=== PATIENT | male | born 1940 | race African-American/Black ===

== ENCOUNTER 2016-07-22 10:17 | Inpatient (IN) | payer OTHER ==
--- NOTE | ~2016-07-22 | CR72 ---
[facility] A Service of [facility] & [facility] RADIOLOGY TEXT RESULTS PATIENT: RAFI ROBINS LOCATION: [facility] [id number] : 39 UNIT #: [id number] AGE: [address]: Satish Cutler MD SEX: M ORDER DR: [id number] [facility] [address] [place], [place] [address] [id number] MR#: [id number] Acc #: [id number] NAME: RAFI ROBINS : 1940 SEX: M STUDY DATE/TIME: 07/22/2016 11:24 UNIT: QUINCY ROOM: STUDY DESCRIPTION: CR Chest Single View Portable Attending Physician: Jamil Gonzalez M.D. Ordering Physician: Jamil Gonzalez M.D. Primary Care Physician: Wicho Mc M.D. MEDICAL IMAGING REPORT This report is preliminary unless electronic signature is present EXAM Chest portable 07/22/2016 1124 hours HISTORY 76-year-old man with 4-day history of chest pain, history of diabetes, CABG and coronary stents. Hypertension. COMPARISON None. FINDINGS Portable upright chest demonstrates median sternotomy and CABG change. There is [id number] cardiomegaly and a tortuous atherosclerotic aorta. The lungs demonstrate calcified granulomata. There is no edema, pneumonia or effusion. IMPRESSION CABG change with mild to moderate cardiomegaly and tortuous aorta. The lungs are clear of acute densities. There is no pleural effusion or pneumothorax. Dictated by... Jacquelyn Lucas M.D. THIS IS AN ELECTRONICALLY VERIFIED REPORT Jacquelyn Lucas M.D. at 07/22/2016 2:34 PM CORTEZ/jl TD: 07/22/2016 13:51 JOB #: [id number] MEDICAL IMAGING REPORT Page 1 of 1 COPY
--- NOTE | ~2016-07-22 | HP ---
Unit #: [id number] #: [id number] Patient: RAFI ROBINS [id number] [address] [place], [place] [address] [id number] I MR#: [id number] NAME: RAFI ROBINS ROOM: [address]65 Age: 76 Sex: M Admission Date: 07/22/2016 : 1940 Attending Physician: Satish Cutler M.D. Primary Care Physician: Wicho Mc M.D. HISTORY AND PHYSICAL HISTORY OF PRESENT ILLNESS This is a 76-year-old -[place] male who is known to Dr. Cutler that has a history of myocardial infarction in 1994 where he underwent coronary artery bypass graft x4. In 2009 he had angioplasty with stent placement to the saphenous vein graft to the obtuse marginal. He is known to have hypertension, hyperlipidemia, diabetes and a remote history of nicotine abuse as risk factors for ischemic heart disease. The patient presents to the emergency room with a complaint of exertional substernal chest pressure. His chest pain has been ongoing for the past three days. There is no radiation to his neck, arm or jaw. He reports shortness of breath and occasional palpitation and dizziness that accompanies chest pain. He walks on a regular basis but for the past three days after walking 10 minutes he begins to have chest pressure. This morning he was cleaning his house and chest pain continued. He has been awakened at night with similar symptoms. He came to the emergency room for evaluation where his EKG was showing him to have ST depression in the anterolateral leads with evidence of an old inferior infarct. His troponin initially elevated to 0.32. He is currently chest pain free. PAST MEDICAL HISTORY 1. Myocardial infarction, status post coronary artery bypass graft x4 in 1994 at [facility]. No details available. 2. PCI and stent x2 to saphenous vein graft to the first obtuse marginal branch per Dr. Michelle at [facility] in 2009. 3. Hypertension. 4. Hyperlipidemia. 5. Diabetes mellitus type 2. 6. Peripheral vascular disease. 7. Former smoker. PAST SURGICAL HISTORY Coronary artery bypass graft. SOCIAL HISTORY The patient is and retired. He states he is reasonably active, quit smoking in 1983. He denies illicit drug and alcohol use. FAMILY HISTORY Positive for myocardial infarction in his father, who at age 54. ALLERGIES No known drug allergies. Unit #: [id number] #: [id number] Patient: RAFI ROBINS HOME MEDICATIONS 1. Doxazosin 2 mg daily. 2. Protonix 40 mg daily. 3. Nifedipine 90 mg daily. 4. Metformin 500 mg daily. 5. Carvedilol 12.5 mg b.i.d. 6. Hydrochlorothiazide 25 mg daily. 7. Enalapril 20 mg daily. 8. Aspirin 81 mg daily. 9. Atorvastatin 40 mg daily. 10. Imdur 60 mg daily. REVIEW OF SYSTEMS CONSTITUTIONAL: Negative for fever or chills. Has no fatigue or weakness. HEENT: No headache, hearing or vision changes. No difficulty with swallowing. Has occasional dizziness. CARDIOVASCULAR: Has chest pain described in the HPI. Has occasional palpitations. No paroxysmal nocturnal dyspnea or orthopnea. Denies syncope or near syncope. RESPIRATORY: Reports dyspnea that accompanies chest pain on exertion. No cough or hemoptysis. GASTROINTESTINAL: No abdominal pain, nausea or vomiting. No constipation or melena. EXTREMITIES: Negative for lower extremity edema. PHYSICAL EXAMINATION VITAL SIGNS: Blood pressure 165/87, heart rate 69, temperature 97.9. GENERAL: This is a 76-year-old, thin-framed, -[place] male who is in no acute respiratory distress. NEUROLOGICAL: He is awake, alert and oriented. There are no focal weaknesses. NECK: Trachea is midline. No thyromegaly or lymphadenopathy. No jugular venous distention. HEART: S1, S2. Heart sounds are normal. No murmurs. No rubs or clicks. Regular rate and rhythm. RESPIRATORY: Lungs clear, without rales, rhonchi or wheezes. ABDOMEN: Soft, nontender, with bowel sounds present. EXTREMITIES: Without leg edema SKIN: Warm and dry. DIAGNOSTIC STUDIES LABORATORY: Hemoglobin 14.3, hematocrit 43.6, platelet count 161, white count 6.1, sodium 137, potassium 2.9, BUN 16, creatinine 1.1, glucose 175, troponin 0.32 and CK-MB 3.7. IMAGING: Chest x-ray shows mild to moderate cardiomegaly but no active disease. CARDIOVASCULAR: EKG shows sinus rhythm with a first-degree AV block with an old inferior infarct with Q waves noted in III and aVF. There is ST depression in anterolateral leads. Questionable LVH versus ischemia. IMPRESSION 1. Acute coronary syndrome, rule out myocardial infarction. 2. Hypokalemia. 3. Elevated troponin. Peak of 0.32. Unit #: [id number] #: [id number] Patient: RAFI ROBINS 4. History of coronary artery bypass graft in 1994. 5. Percutaneous coronary intervention with stents to the first obtuse marginal branch, saphenous vein graft. 6. Hypertension. 7. Hyperlipidemia. 8. Diabetes mellitus type 2. PLAN 1. The patient's symptom are concerning for worsening coronary artery disease. His troponin is elevated but has not yet ruled in for an acute myocardial infarction; will continue to trend cardiac enzymes and troponin. 2. Repeat EKG. 3. I spoke with the patient and about cardiac catheterization to reevaluate his coronary anatomy. Risks and benefits were explained and they are agreeable; will schedule for tomorrow afternoon. 4. Start on Lovenox in addition to aspirin and Plavix. Continue oral nitrates. 5. Increase high-intensity statin with Lipitor 80 mg daily. 6. Supplement potassium. Dictated by Tyler HandPAstridRLulu for Bharat Nunez/mckinley TD: 07/22/2016 16:34 JOB #: [id number] HISTORY AND PHYSICAL Page 1 of 1 X Valentin Roberts APRN HISTORY AND PHYSICAL
--- NOTE | ~2016-07-22 | EKG ---
PATIENT: RAFI ROBINS UNIT #: [id number] Ventricular Rate: 61 BPM Atrial Rate: 61 BPM P-R Interval: 190 ms QRS Duration: 84 ms Q-T Interval: 388 ms QTC Calculation(Bezet): 390 ms P Manila: 73 degrees Calculated R [place]: -8 degrees Calculated T [place]: 136 degrees Diagnosis Line: Normal sinus rhythm Diagnosis Line: Possible Left atrial enlargement Diagnosis Line: Left ventricular hypertrophy with repolarization Diagnosis Line: abnormality Diagnosis Line: Inferior infarct (cited on or before 22-JUL-2016) Diagnosis Line: Abnormal ECG Diagnosis Line: When compared with ECG of 22-JUL-2016 12:09, Diagnosis Line: Non-specific change in ST segment in Inferior Diagnosis Line: leads Diagnosis Line: Nonspecific T wave abnormality has replaced Diagnosis Line: inverted T waves in Inferior leads Diagnosis Line: Confirmed by SANDI ROCKWELL MD ([id number]) on Diagnosis Line: 07/25/2016 3:43:15 PM INTERPRETING MD: ADAM
--- NOTE | ~2016-07-22 | EKG ---
PATIENT: RAFI ROIBNS UNIT #: [id number] Ventricular Rate: 64 BPM Atrial Rate: 64 BPM P-R Interval: 218 ms QRS Duration: 92 ms Q-T Interval: 406 ms QTC Calculation(Bezet): 418 ms P Brinson: 56 degrees Calculated R Brinson: -11 degrees Calculated T Brinson: 167 degrees Diagnosis Line: Sinus rhythm with 1st degree A-V block Diagnosis Line: Left ventricular hypertrophy with repolarization Diagnosis Line: abnormality Diagnosis Line: Inferior infarct (cited on or before 22-JUL-2016) Diagnosis Line: Abnormal ECG Diagnosis Line: When compared with ECG of 22-JUL-2016 10:25, Diagnosis Line: (unconfirmed) Diagnosis Line: Premature atrial complexes are no longer Present Diagnosis Line: Serial changes of Inferior infarct Present Diagnosis Line: Confirmed by BRENNAN CUETO MD ([id number]) on 07/23/2016 Diagnosis Line: 7:32:31 AM INTERPRETING MD: ROM BRANNON
--- NOTE | ~2016-07-22 | EKG ---
PATIENT: RAFI ROBINS UNIT #: [id number] Ventricular Rate: 52 BPM Atrial Rate: 52 BPM P-R Interval: 192 ms QRS Duration: 84 ms Q-T Interval: 418 ms QTC Calculation(Bezet): 388 ms P Burnet: 52 degrees Calculated R Burnet: 0 degrees Calculated T Burnet: 164 degrees Diagnosis Line: Sinus bradycardia Diagnosis Line: Moderate voltage criteria for LVH, may be normal Diagnosis Line: variant Diagnosis Line: Inferior infarct (cited on or before 22-JUL-2016) Diagnosis Line: ST and T wave abnormality, consider lateral ischemia Diagnosis Line: Abnormal ECG Diagnosis Line: When compared with ECG of 23-JUL-2016 16:15, Diagnosis Line: (unconfirmed) Diagnosis Line: Nonspecific T wave abnormality has replaced Diagnosis Line: inverted T waves in Anterior leads Diagnosis Line: Confirmed by SANDI ROCKWELL MD ([id number]) on Diagnosis Line: 07/25/2016 3:57:26 PM INTERPRETING MD: ADAM
--- NOTE | ~2016-07-22 | EKG ---
PATIENT: RAFI ROBINS UNIT #: [id number] Ventricular Rate: 78 BPM Atrial Rate: 78 BPM P-R Interval: 202 ms QRS Duration: 96 ms Q-T Interval: 394 ms QTC Calculation(Bezet): 449 ms P [place]: 71 degrees Calculated R [place]: -8 degrees Calculated T [place]: 153 degrees Diagnosis Line: Sinus rhythm with Premature atrial complexes Diagnosis Line: Left ventricular hypertrophy with repolarization Diagnosis Line: abnormality Diagnosis Line: Inferior infarct , age undetermined Diagnosis Line: Abnormal ECG Diagnosis Line: No previous ECGs available Diagnosis Line: Confirmed by BRENNAN CUETO MD ([id number]) on 07/23/2016 Diagnosis Line: 7:29:30 AM INTERPRETING MD: ROM BRANNON
--- NOTE | ~2016-07-22 | DS ---
Unit #: [id number] #: [id number] Patient: RAFI ROBINS [id number] [facility] [address] [place], [place] [address] [id number] I MR#: [id number] NAME: RAFI ROBINS ROOM: 573 Age: 76 Sex: M Admission Date: 07/22/2016 : 1940 Discharge Date: 07/25/2016 Attending Physician: Satish Cutler M.D. Primary Care Physician: Wicho Mc M.D. DISCHARGE SUMMARY DISCHARGE DIAGNOSES 1. Acute non ST elevation myocardial infarction. 2. Cardiac catheterization, July 23, 2016, per Dr. Cutler at [facility] that revealed the following results. A. Left main: Normal. B. Left anterior descending with chronic eccentric occlusion after the origin of the second diagonal branch. First diagonal branch 90% stenosis at its origin. Distal vessel small in caliber but may be bypassable. Left internal mammary artery to left anterior descending patent. C. Circumflex artery with 90% stenosis of the second marginal branch. First marginal branch with 99% stenosis at its origin. Distal to the second marginal branch, the circumflex artery is occluded. The posterior marginal branch is normal, both small in caliber. Vein graft to the second marginal branch occluded at its aortic anastomosis. The vein graft to the third marginal branch is occluded at its aortic anastomosis. D. Right coronary artery occluded at the junction of the proximal third and distal two thirds. Vein graft to the distal right coronary artery is occluded at the aortic anastomosis. Distal right coronary artery is small but normal. Posterior descending artery is small in caliber. E. Ejection fraction of 50%. F. There is moderate hypokinesis of the inferior wall. 3. Status post unsuccessful attempt to percutaneous coronary intervention left circumflex obtuse marginal branch secondary to inability to cross the lesion with a wire. 4. Hypertension. 5. Hyperlipidemia. 6. Diabetes mellitus type 2. 7. Hypokalemia, resolved. 8. History of coronary artery bypass graft x4 in 1994 after myocardial infarction. 9. Percutaneous coronary intervention and stent x2 to obtuse marginal branch, saphenous vein graft. 10. Former smoker. DISCHARGE MEDICATIONS 1. Hydrochlorothiazide 25 mg daily. 2. Lipitor 80 mg nightly. 3. Catapres 0.1 mg daily. 4. Cardura 2 mg daily. 5. Aspirin 81 mg daily. 6. Metformin 500 mg daily. Unit #: [id number] #: [id number] Patient: RAFI ROBINS 7. Carvedilol 25 mg b.i.d. 8. Vasotec 20 mg daily. 9. Nifedipine 90 mg daily. 10. Ranexa 500 mg b.i.d. 11. Plavix 75 mg daily. 12. Protonix 40 mg daily. 13. Imdur 60 mg daily. 14. Nitroglycerin 0.4 mg q.5 x3 p.r.n. chest pain. HOSPITAL COURSE This is a 76-year-old -[place] male who has had previous coronary artery bypass graft x4 in 1994 after myocardial infarction. He had angioplasty with stent placement to the saphenous vein graft and to the obtuse marginal branch in [address] Michelle. The patient presents with exertional chest pressure associated with dyspnea, palpitations, and dizziness. His electrocardiogram showed changes with ST depression in the anterolateral leads. His initial troponin was elevated at 0.32, but eventually peaked at 1.09 ruling him in for an acute myocardial infarction. He was treated with nitrates and aspirin in the emergency room. He was hyperkalemic with potassium level of 2.9 which was supplemented. He was started on high-intensity Lipitor 80 mg daily and anticoagulated with Lovenox and Integrilin drip. It was suggested that the patient have his coronary anatomy re-evaluated given his symptoms and previous cardiac history. Risks and benefits were explained and he was agreeable. The following day, the patient was taken to the cardiac catheterization lab where he was found to have multivessel disease. The PETERSON to the LAD was patent; however, his vein grafts to the second marginal branch of the circumflex and third marginal branch of the circumflex as well as the right coronary artery were all occluded. The wilton proximal circumflex artery had 99% stenosis as well as the second marginal branch with 99% stenosis. LAD was 100% stenosed as well as the right coronary artery. There was an attempt angioplasty to the second marginal branch of the circumflex artery; however, after using several balloons and wires, there was inability to cross the lesion. The PCI was aborted. It was suggested that the patient consider redo bypass surgery but review of cineangiograms by Dr. Gray, the patient had very small targets and was not ideal for redo coronary artery bypass graft. It was discussed with patient and daughter that we will try medical treatment but if angina was to continue, may attempt laser assist at PCI on the circumflex marginal in three to six weeks. Integrilin was discontinued and the patient was loaded with Plavix and started on a daily regimen. He was also started on Ranexa. Cardiac rehab was asked to see the patient prior to discharge for enrollment in their program. He was able to walk down the hallway without any additional chest pain or shortness of breath. He had no electrocardiogram changes. His heart rate and blood pressure were stable. He is stable for discharge today. PHYSICAL EXAMINATION VITAL SIGNS: Blood pressure 112/56, heart rate 54, temperature 97.5. CHEST: Clear to auscultation. HEART: S1, S2 with regular rate and rhythm. No murmurs, rubs, or clicks. ABDOMEN: Soft, nontender with bowel sounds present. EXTREMITIES: Without leg edema. Right groin without hematoma or bruising. DIAGNOSTIC STUDIES LABORATORY: Glucose 97, BUN 21, creatinine 1.3, sodium 140, potassium 3.8. Cholesterol 115, triglycerides 73, LDL 65, HDL 35. White count 8.4, Unit #: [id number] #: [id number] Patient: RAFI ROBINS hemoglobin 12.6, hematocrit 39.6, platelet count 167,000. CARDIOVASCULAR: Rhythm strip shows a normal sinus rhythm. EKG shows sinus bradycardia, rate of 52 beats per minute. There is T-wave inversion in the lateral leads V4 through V6, one in aVL. Left ventricular hypertrophy. DISCHARGE INSTRUCTIONS 1. The patient will be discharged home today. 2. Followup with his primary care physician in two to three weeks, with Dr. Cutler on September 11 at 2:30 p.m. 3. No heavy lifting for 48 hours. 4. No driving for 24 hours. 5. Continue on dual-antiplatelet therapy with aspirin and Plavix. 6. The patient has been started on Ranexa which is affordable for him. He has been given a one-month supply samples from the office. 7. Continue on beta harinder, statin, and nitrates. He has been instructed the use of sublingual nitroglycerin as needed for chest pain. Dictated by... Valentin E. Erickson Roberts M.D. AEP/ch TD: 07/28/2016 15:03 JOB #: [id number] CC: Wicho Mc M.D. DISCHARGE SUMMARY Page 1 of 1 X Valentin Roberts APRN X DISCHARGE SUMMARY
[2016-07-22 11:51] LABS: BASOPHIL% 0.5 % (0-2.5); EOSINOPHIL% 0.7 % (0.0-7.0); HEMATOCRIT 43.6 % (38.0-50.0); HEMOGLOBIN 14.3 gm/dL (13.0-16.0); LYMPHOCYTE# 1.8 X10e3 (1.0-3.5); LYMPHOCYTE% 29.9 % (17.0-45.0); MEAN CELL VOLUME 84.4 FL (83-96); MEAN CORPUSCULAR HEMOGLOBIN 27.6 PG (28-34); MEAN CORPUSCULAR HGB CONC 32.8 g/dL (30-36); MEAN PLATELET VOLUME 9.1 FL (6.5-11.5); MONOCYTE# 0.5 X10e3 (0-1.0); MONOCYTE% 8.8 % (3.0-12.0); NEUTROPHIL# 3.7 X10e3 (1.5-7.1); NEUTROPHIL% 60.1 % (40-75); PLATELET COUNT 161 X10e3 (140-420); RED BLOOD COUNT 5.17 X10e (3.90-5.60); RED CELL DISTRIBUTION WIDTH 14.2 % (11.0-15.5); WHITE BLOOD COUNT 6.1 X10e3 (4.0-10.5)
[2016-07-22 11:54] LABS: DIFF IND NO
[2016-07-22 12:01] LABS: POC - CKMB 3.7 ng/mL (0.0-7.9); POC - TROPONIN 0.32 ng/mL (<=0.05)
[2016-07-22 12:08] LABS: PARTIAL THROMBOPLASTIN TIME 26.5 SECONDS (23.5-31.3); PROTHROMBIN TIME (PATIENT) 10.9 SECONDS (9.6-11.5)
[2016-07-22 12:22] LABS: ALBUMIN SERUM 3.9 g/dL (3.5-5.0); ALKALINE PHOSPHATASE 83 U/L (32-92); ALT (SGPT) 22 U/L (10-40); AST (SGOT) 33 U/L (10-42); BILIRUBIN,TOTAL 0.7 mg/dL (0.2-2.0); BLOOD UREA NITROGEN 16 mg/dL (9-23); BUN/CREATININE RATIO 14.54; CALCIUM SERUM 8.7 mg/dL (8.4-10.2); CARBON DIOXIDE 28 mmol/L (22-31); CHLORIDE 100 mmol/L (100-111); CREATININE SERUM 1.1 mg/dL (0.6-1.4); GLOM FILT RATE Estimated 74.7 mL/min (>60); GLUCOSE FASTING 175 mg/dL (70-110); PROTEIN TOTAL SERUM 7.5 g/dL (6.0-8.3); SODIUM 137 mmol/L (135-145)
[2016-07-22 12:23] LABS: BILIRUBIN, DIRECT <0.1 mg/dL (0.0-0.2); BILIRUBIN,INDIRECT 0.6 mg/dL (0.0-0.9); POTASSIUM 2.9 mmol/L (3.5-5.1)
[2016-07-22 13:42] LABS: POC - CKMB 8.6 ng/mL (0.0-7.9); POC - TROPONIN 0.59 ng/mL (<=0.05)
[2016-07-22] MEDS ORDERED: NIFEDIPINE ER90 M3 PO (14:27)
[2016-07-22] MEDS ORDERED: PANTOPRAZOLE SO40 MG PO (14:27)
[2016-07-22] MEDS ORDERED: CARDURA2 MG PO (14:27)
[2016-07-22] MEDS ORDERED: METFORMIN HCL500 M3 PO (14:28)
[2016-07-22] MEDS ORDERED: CATAPRES0.1 MG PO (14:28)
[2016-07-22] MEDS ORDERED: COREG12.5 MG PO (14:28)
[2016-07-22] MEDS ORDERED: HYDROCHLOROTHIA25 MG PO (14:29)
[2016-07-22] MEDS ORDERED: ENALAPRIL MALEA20 MG PO (14:29)
[2016-07-22] MEDS ORDERED: ASPIRIN81 MG PO (14:29)
[2016-07-22] MEDS ORDERED: LIPITOR40 MG PO (14:29)
[2016-07-22] MEDS ORDERED: IMDUR-ER60 M1 PO (14:30)
[2016-07-22 15:25] LABS: CHOLESTEROL 152 mg/dL (0-200); HDL CHOLESTEROL 44 mg/dL (29-75); LDL CHOLESTEROL 82 mg/dL (-130); LDL/HDL RATIO 2 RATIO (0-4); TRIGLYCERIDES 128 mg/dL (10-160)
[2016-07-22 20:47] LABS: %MB 4.2 % (0.0-4.0); MB 23.1 ng/ml
[2016-07-23 08:30] LABS: HEMATOCRIT 48.2 % (38.0-50.0); HEMOGLOBIN 15.7 gm/dL (13.0-16.0); MEAN CORPUSCULAR HEMOGLOBIN 27.6 PG (28-34); MEAN CORPUSCULAR HGB CONC 32.5 g/dL (30-36); MEAN PLATELET VOLUME 9.5 FL (6.5-11.5); RED BLOOD COUNT 5.67 X10e (3.90-5.60); RED CELL DISTRIBUTION WIDTH 14.2 % (11.0-15.5); WHITE BLOOD COUNT 9.6 X10e3 (4.0-10.5)
[2016-07-23 08:33] LABS: MB 23.8 ng/ml
[2016-07-23 08:53] LABS: BUN/CREATININE RATIO 12.72; CALCIUM SERUM 9.6 mg/dL (8.4-10.2); CREATININE SERUM 1.1 mg/dL (0.6-1.4); GLOM FILT RATE Estimated 74.7 mL/min (>60); POTASSIUM 3.8 mmol/L (3.5-5.1)
[2016-07-23 10:21] LABS: INR 1.1; PARTIAL THROMBOPLASTIN TIME 28.2 SECONDS (23.5-31.3); PROTHROMBIN TIME (PATIENT) 11.5 SECONDS (9.6-11.5)
[2016-07-24 00:03] LABS: ANGIO %MB 2.5 % (0.0-4.0); ANGIO MB 9.4 ng/ml
[2016-07-24 05:52] LABS: BASOPHIL% 0.3 % (0-2.5); EOSINOPHIL% 0.2 % (0.0-7.0); HEMATOCRIT 39.2 % (38.0-50.0); LYMPHOCYTE# 3.3 X10e3 (1.0-3.5); LYMPHOCYTE% 39.1 % (17.0-45.0); MEAN CELL VOLUME 85.3 FL (83-96); MEAN CORPUSCULAR HEMOGLOBIN 27.5 PG (28-34); MEAN CORPUSCULAR HGB CONC 32.2 g/dL (30-36); MEAN PLATELET VOLUME 9.4 FL (6.5-11.5); MONOCYTE# 0.9 X10e3 (0-1.0); MONOCYTE% 10.5 % (3.0-12.0); NEUTROPHIL# 4.2 X10e3 (1.5-7.1); NEUTROPHIL% 49.9 % (40-75); PLATELET COUNT 167 X10e3 (140-420); RED CELL DISTRIBUTION WIDTH 14.4 % (11.0-15.5); WHITE BLOOD COUNT 8.4 X10e3 (4.0-10.5)
[2016-07-24 06:11] LABS: HEMOGLOBIN 12.6 gm/dL (13.0-16.0)
[2016-07-24 06:12] LABS: DIFF IND NO
[2016-07-24 06:48] LABS: BUN/CREATININE RATIO 16.15; CALCIUM SERUM 8.7 mg/dL (8.4-10.2); CREATININE SERUM 1.3 mg/dL (0.6-1.4); POTASSIUM 3.8 mmol/L (3.5-5.1)
[2016-07-24 08:42] LABS: ANGIO %MB 3.1 % (0.0-4.0); ANGIO MB 11.7 ng/ml
[2016-07-25] MEDS ORDERED: NITROGLYGERIN0.4 MG SL (12:11)
[2016-07-25] MEDS ORDERED: CLOPIDOGREL75 MG PO (12:13)
[2016-07-25] MEDS ORDERED: RANEXA500 MG PO (12:13)
[2016-07-25] MEDS ORDERED: LIPITOR80 MG PO (12:14)
[2016-07-25] MEDS ORDERED: CARVEDILOL25 MG PO (12:14)
== END 2016-07-25 13:46 | disposition home or self-care (01) | DRG 251 ==
LOC: CED 10:17 → CEDOF 13:30 → C5C 13:30 → CEDOF 14:35 → CED 14:35 → CEDOF 20:17 → C5C 20:17
PROVIDERS: Emergency Medicine; Internal Medicine Cardiovascular Disease
PROC: 4A023N7 Measurement of Cardiac Sampling and Pressure, Left Heart, Percutaneous Approach (ICD-10-PCS; principal; 2016-07-23)
PROC: 02703ZZ Dilation of Coronary Artery, One Artery, Percutaneous Approach (ICD-10-PCS; 2016-07-23)
PROC: B213YZZ Fluoroscopy of Multiple Coronary Artery Bypass Grafts using Other Contrast (ICD-10-PCS; 2016-07-23)
PROC: B211YZZ Fluoroscopy of Multiple Coronary Arteries using Other Contrast (ICD-10-PCS; 2016-07-23)
PROC: B215YZZ Fluoroscopy of Left Heart using Other Contrast (ICD-10-PCS; 2016-07-23)
DX: I21.4 Non-ST elevation (NSTEMI) myocardial infarction (principal); E11.9 Type 2 diabetes mellitus without complications; I25.810 Atherosclerosis of coronary artery bypass graft(s) without angina pectoris; Z95.5 Presence of coronary angioplasty implant and graft; I10 Essential (primary) hypertension; E78.5 Hyperlipidemia, unspecified; Z79.84 Long term (current) use of oral hypoglycemic drugs; I73.9 Peripheral vascular disease, unspecified; Z87.891 Personal history of nicotine dependence; Z79.82 Long term (current) use of aspirin; E87.6 Hypokalemia; I25.119 Atherosclerotic heart disease of native coronary artery with unspecified angina pectoris
CPT/HCPCS: 71010; 80048; 80061; 80076; 82550; 82553; 82947; 84484; 85025; 85027; 85347; 85610; 85730; 93005; 99285; C1725; C1769; C1887; J0360; J0461; J1327; J1644; J1650; J1815; J2250; J2270; J2405; J3010